=== PATIENT | female | born 1940 | race Caucasian/White ===

== ENCOUNTER 2017-05-10 18:48 | Inpatient (IN) | payer OTHER ==
[~2017-05-10] VITALS: Ht 170.2 cm; Wt 117.5 kg
[2017-05-10 19:23] LABS: HEMOGLOBIN 15.7 gm/dl (12.3-15.3); RED BLOOD COUNT 5.01 M/UL (4.00-5.10); WHITE BLOOD COUNT 9.2 K/UL (4.5-11.0)
[2017-05-11] MEDS ORDERED: PRAVASTATIN SOD40 MG PO (00:34)
[2017-05-11] MEDS ORDERED: EVISTA60 MG SQ (00:34)
[2017-05-11] MEDS ORDERED: TOPROL XL25 MG PO (00:35)
[2017-05-11] MEDS ORDERED: DITROPAN 5 MG TA5 MG PO (00:36)
[2017-05-11] MEDS ORDERED: PROTONIX 40 MG40 M1 PO (00:36)
[2017-05-11] MEDS ORDERED: OMEGA-31000 MG PO (00:36)
[2017-05-11] MEDS ORDERED: LIORESAL TAB 1010 MG PO (00:37)
[2017-05-11] MEDS ORDERED: ASPIR 8181 MG PO (00:37)
[2017-05-11] MEDS ORDERED: BENTYL 10MG CAP10 MG PO (00:38)
[2017-05-11] MEDS ORDERED: LEVEMIR100 UNIT/1 SQ (00:39)
[2017-05-11] MEDS ORDERED: GLUCOTROL 10 MG10 MG PO (00:39)
[2017-05-11] MEDS ORDERED: ISOSORBIDE MONO30 MG PO (00:40)
[2017-05-11] MEDS ORDERED: SYNTHROID137 MCG PO (00:40)
[2017-05-12] MEDS ORDERED: ELIQUIS 5 MG TAB5 MG PO (13:04)
[2017-05-12] MEDS ORDERED: ELIQUIS5 MG PO (13:04)
== END 2017-05-12 11:30 | disposition home or self-care (01) | DRG 176 ==
LOC: ER1 18:48 → ZEROF 23:03 → MED SURG 4 23:03
PROVIDERS: Family Medicine; ADMIT Hospitalist
PROC: 3E0234Z Introduction of Serum, Toxoid and Vaccine into Muscle, Percutaneous Approach (ICD-10-PCS; principal; 2017-05-12)
DX: I26.99 Other pulmonary embolism without acute cor pulmonale (principal); Z68.41 Body mass index [BMI] 40.0-44.9, adult; E11.9 Type 2 diabetes mellitus without complications; E03.9 Hypothyroidism, unspecified; E66.01 Morbid (severe) obesity due to excess calories; Z88.0 Allergy status to penicillin; E78.5 Hyperlipidemia, unspecified; Z79.01 Long term (current) use of anticoagulants; I25.10 Atherosclerotic heart disease of native coronary artery without angina pectoris; M81.0 Age-related osteoporosis without current pathological fracture; I10 Essential (primary) hypertension; Z88.1 Allergy status to other antibiotic agents; Z88.8 Allergy status to other drugs, medicaments and biological substances; Z85.3 Personal history of malignant neoplasm of breast; I25.2 Old myocardial infarction; N32.81 Overactive bladder; Z87.891 Personal history of nicotine dependence; Z96.653 Presence of artificial knee joint, bilateral; Z96.643 Presence of artificial hip joint, bilateral; Z96.611 Presence of right artificial shoulder joint
CPT/HCPCS: 36415; 71010; 80053; 80061; 81240; 81241; 81291; 82550; 82553; 82962; 83036; 83874; 84443; 84484; 85025; 85300; 85301; 85302; 85379; 85611; 85732; 86039; 86300; 93005; 93970; 94640; 94664; J1650; J7050; Q9963

== ENCOUNTER → 2020-09-19 | Outpatient (CLI) | payer OTHER ==
[~2020-09-19] MED LIST: ALDACTONE50 MG PO; ASPIR 8181 MG PO; BENTYL 10MG CAP10 MG PO; CALCIUM + VITA1 EACH PO; CALCIUM 600 +1 EAC7 PO; CLARITIN10 M2 PO; CO Q-10200 MG PO; COQ-10100 MG PO; DICYCLOMINE HCL10 MG PO; DITROPAN 5 MG TA5 MG PO; ECOTRIN81 MG PO; ELIQUIS 5 MG TAB5 MG PO; ELIQUIS5 MG PO; EVISTA60 MG SQ; GLUCOTROL 10 MG10 MG PO; HUMALOG100 UNIT/1 SQ; HUMALOG100 UNIT/3 SQ; ISOSORBIDE MONO30 MG PO; LEVEMIR100 UNIT/1 SC; LEVEMIR100 UNIT/1 SQ; LEVOTHYROXINE137 MC1 PO; LIORESAL TAB 1010 MG PO; LORATADINE10 MG PO; MECLIZINE HCL12.5 MG PO; OMEGA 3 1,0001 EACH PO; OMEGA-31000 MG PO; OXYBUTYNIN CHLOR5 MG PO; PEPCID40 MG PO; PRAVASTATIN SOD40 MG PO; PROTONIX 40 MG40 M1 PO; STRESS FORMULA1 EAC4 PO; STRESS FORMULA1 EACH PO; SYNTHROID137 MCG PO; TOPROL XL50 MG PO; VITAMIN D PO; VITAMIN D31000 UNI1 PO
== END ==
LOC: MAMO 08-15 09:00
DX: Z12.31 Encounter for screening mammogram for malignant neoplasm of breast (principal); C50.412 Malignant neoplasm of upper-outer quadrant of left female breast; M81.8 Other osteoporosis without current pathological fracture; M81.0 Age-related osteoporosis without current pathological fracture; I26.99 Other pulmonary embolism without acute cor pulmonale; N64.89 Other specified disorders of breast
CPT/HCPCS: 77063; 77067

== ENCOUNTER → 2020-10-29 | Day surgery (SDC) | payer OTHER | END | disposition home or self-care (01) | LOC: OR 07:17 | PROVIDERS: Internal Medicine Gastroenterology | PROC: 0DBK8ZX Excision of Ascending Colon, Via Natural or Artificial Opening Endoscopic, Diagnostic (ICD-10-PCS; 2020-10-29) | PROC: 0DBB8ZX Excision of Ileum, Via Natural or Artificial Opening Endoscopic, Diagnostic (ICD-10-PCS; 2020-10-29) | PROC: 0DBH8ZX Excision of Cecum, Via Natural or Artificial Opening Endoscopic, Diagnostic (ICD-10-PCS; 2020-10-29) | PROC: 0DB68ZX Excision of Stomach, Via Natural or Artificial Opening Endoscopic, Diagnostic (ICD-10-PCS; principal; 2020-10-29 08:07) | PROC: 0DB78ZX Excision of Stomach, Pylorus, Via Natural or Artificial Opening Endoscopic, Diagnostic (ICD-10-PCS; 2020-10-29 08:07) | DX: K31.9 Disease of stomach and duodenum, unspecified (principal); D12.0 Benign neoplasm of cecum; D12.2 Benign neoplasm of ascending colon; K57.30 Diverticulosis of large intestine without perforation or abscess without bleeding; K64.1 Second degree hemorrhoids; K64.4 Residual hemorrhoidal skin tags; I10 Essential (primary) hypertension; E11.9 Type 2 diabetes mellitus without complications; F17.220 Nicotine dependence, chewing tobacco, uncomplicated; I25.2 Old myocardial infarction; E78.5 Hyperlipidemia, unspecified; K21.9 Gastro-esophageal reflux disease without esophagitis; M19.90 Unspecified osteoarthritis, unspecified site; Z88.8 Allergy status to other drugs, medicaments and biological substances; Z79.01 Long term (current) use of anticoagulants; Z79.82 Long term (current) use of aspirin; Z79.4 Long term (current) use of insulin; Z79.899 Other long term (current) drug therapy; Z88.0 Allergy status to penicillin; Z88.1 Allergy status to other antibiotic agents; Z86.711 Personal history of pulmonary embolism; Z86.718 Personal history of other venous thrombosis and embolism; Z91.012 Allergy to eggs; Z85.3 Personal history of malignant neoplasm of breast | CPT/HCPCS: 82962; J2001; J2704; J7040 ==

== ENCOUNTER → 2020-11-06 | Outpatient (CLI) | payer OTHER | LOC: MAMO 10-17 11:00 | DX: C50.412 Malignant neoplasm of upper-outer quadrant of left female breast (principal); M81.8 Other osteoporosis without current pathological fracture; I26.99 Other pulmonary embolism without acute cor pulmonale | CPT/HCPCS: 76642-RT; 77065 ==

== ENCOUNTER → 2021-01-19 | Outpatient (CLI) | payer OTHER | LOC: KOH-I 11:19 | DX: R07.81 Pleurodynia (principal); Z47.89 Encounter for other orthopedic aftercare | CPT/HCPCS: 71100 ==

== ENCOUNTER → 2021-10-05 | Outpatient (CLI) | payer OTHER | LOC: HEART 5 08:51 | DX: I25.10 Atherosclerotic heart disease of native coronary artery without angina pectoris (principal); I10 Essential (primary) hypertension; I08.1 Rheumatic disorders of both mitral and tricuspid valves | CPT/HCPCS: 93306 ==

== ENCOUNTER → 2021-11-19 | Outpatient (CLI) | payer OTHER ==
[2021-11-19 11:43] LABS: HEMOGLOBIN 15.4 gm/dl (12.3-15.3); RED BLOOD COUNT 4.84 M/UL (4.00-5.10); WHITE BLOOD COUNT 8.5 K/UL (4.5-11.0)
== END ==
LOC: MAMO 09:50
PROVIDERS: Internal Medicine Hematology & Oncology
DX: Z12.31 Encounter for screening mammogram for malignant neoplasm of breast (principal); C50.412 Malignant neoplasm of upper-outer quadrant of left female breast; M81.8 Other osteoporosis without current pathological fracture; M81.0 Age-related osteoporosis without current pathological fracture; I26.99 Other pulmonary embolism without acute cor pulmonale
CPT/HCPCS: 36415; 77063; 77067; 80053; 85025

== ENCOUNTER → 2022-04-01 | Outpatient (CLI) | payer OTHER | LOC: KOH-I 09:03 | DX: N18.9 Chronic kidney disease, unspecified (principal) | CPT/HCPCS: 76700 ==